=== PATIENT | female | born 1960 | race American Indian/Alaskan Native ===

== ENCOUNTER 2017-05-01 08:29 | Emergency (ER) | payer MEDICARE ==
[2017-05-01 08:34] VITALS: BMI 38.3
[2017-05-01 08:36] VITALS: BP 141/50; RESP 18; TEMP 98.3
[2017-05-01] MEDS ORDERED: Albuterol-Ipratrop 3 mg / 0.5 (3 ml) UD IH STA ×2 (08:52→08:53)
[2017-05-01] MEDS ORDERED: Albuterol-Ipratrop 3 mg / 0.5 (3 ml) UD ONE (08:58)
--- NOTE | 2017-05-01 08:58 | ED PDOC ---
HPI: CCC, URI, Sore Throat Time Seen by Provider: 05/01/17 08:41 Chief Complaint (Nursing): Cough, Cold, Congestion Chief Complaint (Provider): Cough and Wheezing History Per: Patient History/Exam Limitations: no limitations Onset/Duration Of Symptoms: Days (x1) Current Symptoms Are (Timing): Still Present Additional Complaint(s): Vanessa Garcia is a 56 year old female with a past medical history of asthma, diabetes, hypertension, and hypercholesterolemia presenting to the ED for an evaluation of wheezing and productive cough with clear sputum occurring since yesterday. The patient denies any improvement with use of her inhaler and denies fever. PMD: Nixon Vanessa MD Past Medical History Reviewed: Historical Data, Nursing Documentation, Vital Signs Vital Signs: Last Vital Signs Temp 98.3 F 05/01/17 08:35 Pulse 78 05/01/17 08:35 Resp 18 05/01/17 08:35 BP 141/50 L 05/01/17 08:35 Pulse Ox 98 05/01/17 09:02 - Medical History PMH: Asthma, Diabetes, HTN, Hypercholesterolemia - Surgical History Surgical History: Cholecystectomy, (x 2) - Family History Family History: States: No Known Family Hx - Social History Current smoker - smoking cessation education provided: No Ex-Smoker (has not smoked in the last 12 months): No Alcohol: Social Drugs: Denies - Home Medications Home Medications: Ambulatory Orders Medication Instructions Recorded Albuterol HFA [Ventolin HFA 90 1 puff IH Q4 PRN #1 unit 02/04/14 mcg/actuation (8 g)] Azithromycin [Zithromax Z-Yusuf] 250 mg PO DAILY #0 tab 02/04/14 Benzonatate [Tessalon Perles] 100 mg PO Q8 PRN #30 sgl 02/04/14 Prednisone 20 mg PO BID #10 tab 02/04/14 Loratadine [Claritin] 10 mg PO DAILY #20 tab 05/10/15 predniSONE [predniSONE Tab] 10 mg PO TID #15 tab 05/01/17 - Allergies Allergies/Adverse Reactions: Allergies Allergy/AdvReac Type Severity Reaction Status Date / Time No Known Allergies Allergy Verified 02/04/14 14:48 Review of Systems ROS Statement: Except As Marked, All Systems Reviewed And Found Negative Constitutional: Negative for: Fever Respiratory: Positive for: Cough (productive), Sputum (clear), Wheezing Physical Exam - Reviewed Nursing Documentation Reviewed: Yes Vital Signs Reviewed: Yes - Physical Exam Appears: Positive for: Non-toxic, No Acute Distress Head Exam: Positive for: ATRAUMATIC, NORMOCEPHALIC Skin: Positive for: Normal Color, Warm, Dry Eye Exam: Positive for: Normal appearance, EOMI ENT: Positive for: Normal ENT Inspection Neck: Positive for: Normal, Painless ROM Cardiovascular/Chest: Positive for: Regular Rate, Rhythm, Chest Non Tender Respiratory: Positive for: Decreased Breath Sounds, Rhonchi (scattered). Negative for: Respiratory Distress Back: Positive for: Normal Inspection Extremity: Positive for: Normal ROM (full ROM). Negative for: Deformity Neurologic/Psych: Positive for: Alert, Oriented (x3). Negative for: Motor/ Sensory Deficits - ECG O2 Sat by Pulse Oximetry: 98 (RA) Pulse Ox Interpretation: Normal - Progress Re-evaluation Time: 09:58 Condition: Improved Medical Decision Making Medical Decision Making: Time: 08:41 Impression: Cough and wheezing Plan: * Duoneb 3 mg/0.5 mg (3 ml) UD 3 ml INH * Peak Flow pre/post Tx * [RAD] Chest Two Views * Reevaluation Scribe Attestation: Documented by Guerita Corbett, acting as a scribe for Charlie Hernandez MD. Provider Scribe Attestation: All medical record entries made by the Scribe were at my direction and personally dictated by me. I have reviewed the chart and agree that the record accurately reflects my personal performance of the history, physical exam, medical decision making, and the department course for this patient. I have also personally directed, reviewed, and agree with the discharge instructions and disposition. Disposition - Clinical Impression Clinical Impression: Asthma - Patient ED Disposition Is Patient to be Admitted: No Counseled Patient/Family Regarding: Studies Performed, Diagnosis, Need For Followup, Rx Given - Disposition Referrals: [facility] [Outside] Disposition: Routine/Home Disposition Time: 10:00 Condition: FAIR Prescriptions: predniSONE [predniSONE Tab] 10 mg PO TID #15 tab Instructions: Asthma (ED) Forms: [employer] Mobile Payment (Arabic)
[2017-05-01 10:12] VITALS: PULSE 87; O2SAT 96
--- NOTE | 2017-05-01 11:56 | RAD ---
HISTORY: Shortness of breath. COMPARISON: Comparison made with prior chest radiograph 02/04/2014. TECHNIQUE: Chest PA and lateral FINDINGS: LUNGS: No acute consolidation. Slightly increased coarse interstitial markings rule out sequela of reactive/inflammatory airway disease or viral illness. . PLEURA: No significant pleural effusion identified. No pneumothorax apparent. CARDIOVASCULAR: Normal. OSSEOUS STRUCTURES: No significant abnormalities. VISUALIZED UPPER ABDOMEN: Normal. OTHER FINDINGS: None. IMPRESSION: No acute consolidation. Slightly increased coarse interstitial markings rule out sequela of reactive/inflammatory airway disease or viral illness. .
== END 2017-05-01 10:09 | disposition home or self-care (01) ==
LOC: H.ER 08:29
DX: J45.909 Unspecified asthma, uncomplicated (principal); E11.9 Type 2 diabetes mellitus without complications; I10 Essential (primary) hypertension; Z87.891 Personal history of nicotine dependence; E78.00 Pure hypercholesterolemia, unspecified